=== PATIENT | female | born 1980 | race Caucasian/White ===

== ENCOUNTER 2016-09-14 12:25 | Inpatient (IN) | payer OTHER ==
[~2016-09-14] VITALS: Ht 152.4 cm; Wt 71.7 kg
[2016-09-17] MEDS ORDERED: PRENATAL VIT1 TAB PO (14:51)
[2016-09-17] MEDS ORDERED: FLEXERIL DPS5 MG PO (14:51)
[2016-09-17] MEDS ORDERED: FEOSOL-DPS325 MG PO (14:51)
[2016-09-17] MEDS ORDERED: MOTRIN-DPS800 MG PO (14:52)
[2016-09-17] MEDS ORDERED: PROTONIX40 MG PO (14:52)
[2016-09-17] MEDS ORDERED: COLACE-DPS100 MG PO (14:52)
[2016-09-17] MEDS ORDERED: PERCOCET 5 DPS1 TAB PO (14:52)
[2016-09-17] MEDS ORDERED: NIPPLECREAM TP (14:53)
--- NOTE | 2016-10-01 22:32 | HP ---
ADMIT: 09/14/2016 RM/LOC: 202 [facility] MR#: [id number] [address] [address] DEBRA BUTCHER [address] [place], [place] [id number] History and Physical SEX: F AGE: 36 : 1980 DATE OF SERVICE: CHIEF COMPLAINT: Elevated blood pressure. HISTORY OF PRESENT ILLNESS: This is a 36-year-old female, 4, para 0-0- 3-0, who [facility] with an intrauterine at 37 and 2/7th weeks' gestation with estimated date of confinement of 10/03/2016. Her estimated date of confinement is based off a 7-week ultrasound. She initially presented to the clinic for a blood pressure check. At that time, her blood pressure was noted to be 130/92. She also reported irregular uterine contractions and abdominal pain. She was therefore sent to the [facility] for monitoring. Her blood pressures were noted to be normal at the [facility]; however, heart tones were noted to have periods of minimal variability and only occasional 10 x 10 accelerations. Decelerations were absent. biophysical profile was then ordered. This did return showing absence of breathing movement and tone. She therefore had a total biophysical profile score of 2/10 and received only 2 points for fluid. Given these findings, we have decided to proceed with delivery. She had previously been planning a primary section secondary to a history of myomectomy. PAST MEDICAL HISTORY: Significant for chronic headaches and neck pain. Her has otherwise been complicated by history of recurrent spontaneous , history of myomectomy and history of infertility. She denies hypertension outside of , diabetes, asthma, or kidney or thyroid disease. PAST SURGICAL HISTORY: Uterine myomectomy in September of 2013. SOCIAL HISTORY: She is not . The father of the baby is involved. She denies tobacco, alcohol, or drug use. ALLERGIES: NO KNOWN DRUG ALLERGIES. CURRENT MEDICATIONS: Include: 1. Protonix 40 mg daily. 2. Hydroxyzine 25 mg as needed at bedtime. 3. Ferrous sulfate 325 mg daily. 4. Flexeril 10 mg t.i.d. p.r.n. 5. vitamins. LABORATORY DATA: Blood type is AB positive. Antibody screen negative, rubella immune, HIV negative, RPR nonreactive, hepatitis B surface antigen negative. Pap was normal. 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 Gonorrhea and chlamydia negative. Diabetic screen 125. Group B strep culture negative. PHYSICAL EXAMINATION: VITAL SIGNS: Temperature is 98.1, blood pressure 132/86, pulse 96, and respirations 16. GENERAL: This is a pleasant female, in no acute distress. ADMIT: 09/14/2016 RM/LOC: 202 [facility] MR#: [id number] [address] DEBRA BUTCHER [address] [place] [address] History and Physical SEX: F AGE: 36 : 1980 HEENT: Head is normocephalic, atraumatic. Pupils are equal, round, react to light and accommodation. Extraocular muscles are intact. NECK: Supple. HEART: Regular rate and rhythm. LUNGS: Clear bilaterally. ABDOMEN: Soft, nontender, and nondistended. Gravid. EXTREMITIES: Nontender. heart tones are 150s baseline, moderate, periods of minimal variability and periods of moderate variability are present, 10 x 10 accelerations are present. Decelerations are absent. Uterine contractions are irregular. Cervical exam is deferred. IMPRESSION: 1. This is a 36-year-old female, 4, para 0-0-3-0 with an intrauterine at 37 and 2/7th weeks' gestation. 2. Nonreassuring antepartum testing. 3. History of uterine myomectomy. PLAN: At this time, we do plan to proceed with a section. The risks, benefits, and alternatives have been discussed with the patient including, but not limited to the risks for bleeding, infection, potential for injury to the bowel, bladder, major vessels, or other nearby organs requiring repair. All of her questions have been answered. We have also discussed the potential need for blood transfusion and the risks associated with this, and she agrees to proceed. Eri London MD/ mary JOB #: [id number] CC: Eri London, Attending Physician Kiesha Escobar, Family Physician
--- NOTE | 2016-10-07 08:52 | OR ---
ADMIT: 09/14/2016 RM/LOC: 202 [facility] MR#: [id number] [facility] [address] [place] [id number] [address] [place] [address] Operative/Delivery Room Report SEX: F AGE: 36 : 1980 SURGERY DATE: 09/14/2016 SURGEON: Eri London MD PREOPERATIVE DIAGNOSES: 1. Intrauterine at 37 and 2/7th weeks' gestation. 2. Nonreassuring antepartum testing. 3. History of uterine myomectomy. POSTOPERATIVE DIAGNOSES: 1. Intrauterine at 37 and 2/7th weeks' gestation. 2. Nonreassuring antepartum testing. 3. History of uterine myomectomy. 4. Delivery of a viable female at 1542 hours weighing 6 pounds 11 ounces with scores of 9 at 1 minute and 9 at 5 minutes. PROCEDURE: Low transverse section. OR DIRECTOR: Santosh Frank MD ANESTHESIA: Spinal. COMPLICATIONS: None. ESTIMATED BLOOD LOSS: 800 mL. FLUIDS: Crystalloid. INDICATIONS: This is a 36-year-old female, 4, para 0-0-3-0, who [facility] an intrauterine at 37 and 2/7th weeks' gestation. She was noted to have a nonreactive NST and therefore biophysical profile was ordered. This did return showing only 2 points for fluid; therefore, her total biophysical score was 2/10. The decision was then made to proceed with delivery, and we discussed the risks, benefits, and alternatives to a section and she agreed. FINDINGS: Normal maternal uterus, tubes, and ovaries. Female infant as above. DESCRIPTION OF PROCEDURE: The patient was properly identified. Informed consent was obtained. She was then taken to the operating room where spinal anesthesia was placed. She was then placed in the dorsal supine position with a leftward tilt and prepped and draped in the usual sterile fashion. After adequate anesthesia was established, a Pfannenstiel skin incision was made with a scalpel. This was carried through to the underlying layer of fascia. The fascia was incised in the midline, and the incision was extended laterally using the Lane scissors. The superior aspect of the fascia was grasped with Alex clamps, elevated, and underlying rectus muscles were dissected off. Attention was then turned to the inferior aspect of the fascia in a similar ADMIT: 09/14/2016 RM/LOC: 202 [facility] MR#: [id number] [address] [address] [address] BUT[address] [place] [address] Operative/Delivery Room Report SEX: F AGE: 36 : 1980 manner, it was grasped with Alex clamps, elevated, and underlying rectus muscles were dissected off. The rectus muscles were in the midline. The peritoneum was identified and entered bluntly. The peritoneal incision was then extended superiorly and inferiorly with good visualization of the bladder. The bladder blade was placed. The vesicouterine peritoneum was identified, grasped with pickups, and entered sharply with the Metzenbaum scissors. The incision was extended laterally, and a bladder flap was created digitally. The bladder blade was then replaced, and the lower uterine segment was incised in a transverse fashion with the scalpel. The uterine incision was extended with the stretch maneuver. The bladder blade was removed and the 's vertex was delivered atraumatically. The anterior and posterior shoulders as well as remainder of the infant were easily delivered. The infant did have spontaneous cry and movement of all 4 extremities. The cord was clamped x2 and cut, and she was taken to the warmer where nursing personnel were in attendance. Cord blood and cord pH were obtained. The placenta delivered with help from traction and uterine massage. The uterus was exteriorized and cleared of all clot and debris. Uterine incision was repaired with 0 Vicryl in a running, locked fashion. The uterus was returned to the abdomen. The gutters were cleared of all clot and debris. The uterine incision was reinspected. A single [id number] stitch was placed to obtain excellent hemostasis. The posterior aspect of the rectus fascia, and the rectus muscles were made hemostatic with use of electrocautery. The rectus fascia was reapproximated with 0 Vicryl in a running, nonlocking fashion. The subcutaneous tissues were made hemostatic with use of electrocautery. They were reapproximated using 2-0 plain. Subcuticular asim and Steri-Strips were applied. The patient tolerated the procedure well. Sponge, lap, needle, and instrument counts were correct. The patient was taken to recover in her Labor and Delivery suite with her . Eri London MD/ mary JOB #: [id number] CC: Eri London, Attending Physician Kiesha Escobar, Family Physician
--- NOTE | 2016-11-10 09:41 | DS ---
ADMIT: 09/14/2016 RM/LOC: 202 [facility] MR#: [id number] [id number] [address] [address] [place] [address] General Discharge Summary SEX: F AGE: 36 : 1980 ADMISSION DATE: 09/14/2016 DISCHARGE DATE: 09/16/2016 PRIMARY DIAGNOSES: 1. Status post low transverse section at term secondary to nonreassuring antepartum testing. 2. History of uterine myomectomy. 3. Gestational hypertension. PROCEDURES PERFORMED: On 09/14/2016, low transverse section with delivery of a viable female , weighing 6 pounds and 11 ounces with scores of 9 at 1 minute, 9 at 5 minutes. HOSPITAL COURSE: This is a 36-year-old female, 4, para 0-0-3-0, who [facility] with an intrauterine at 37 and 2/7th weeks' gestation for observation secondary to an elevated blood pressure in the office. At the time of arrival to the [facility], her blood pressure was noted to be 132/86. heart tones; however, were noted to be 150s baseline with periods of minimal variability and periods of moderate variability. There were no 15 x 15 accelerations. There were no decelerations; therefore, biophysical profile was ordered. This did return showing 2 points for fluid. There was absent movement tone and breathing; therefore, given these findings, the decision was made to proceed with delivery, and given her history of previous uterine myomectomy and unfavorable cervix, the decision was made to proceed with section. The risks, benefits, and alternatives were discussed with the patient prior to proceeding and she agreed to proceed. She did undergo a low transverse section without any complications. Postoperatively, she did very well. By the morning of postoperative day #1, she was able to ambulate without any difficulty. Her urine output, however, had been 20 to 30 mL an hour; therefore, her Briggs catheter was continued until this improved. Her blood pressures were in the normal range of 110 to 130 systolic/60s to 80s diastolic. Throughout that day, her urine output improved; therefore, Briggs catheter was discontinued. She was able to ambulate without any difficulty. Her blood pressures remained stable and in normal range. Her postoperative hemoglobin was 8; therefore, she was started on ferrous sulfate b.i.d. By the morning of postoperative day #2, her pain was well controlled. She was able to ambulate, void, and tolerate a regular diet without any difficulty. Her blood pressures continued to be normal. She did request discharge on postoperative day #2, was deemed stable for discharge and dismissed to home. DISCHARGE INSTRUCTIONS: She was asked to call with any signs or symptoms of infection including a temperature greater than 100.4 degrees, vaginal bleeding greater than 1 pad an hour, erythema or drainage of her abdominal incision or any erythema or tenderness in her lower extremities or breasts. She was dismissed on: 1. Ferrous sulfate 325 mg 1 p.o. b.i.d. ADMIT: 09/14/2016 RM/LOC: 202 [facility] MR#: [id number] [address] [place] [id number] [address] [place] [address] General Discharge Summary SEX: F AGE: 36 : 1980 2. Colace 100 mg 1 p.o. b.i.d. 3. Motrin 800 mg 1 p.o. q.8 hours p.r.n. pain #30. 4. Percocet 5/325, 1 to 2 p.o. q.4 to 6 hours p.r.n. pain #20. She was advised that she could continue her Flexeril and Protonix, which were her previous home medications as needed. She was instructed to follow up in 1 week for a blood pressure check, in 2 weeks for an incision check, and in 6 weeks for a check. CONDITION ON DISCHARGE: Stable. DISPOSITION: The patient was dismissed to home. Eri London MD/ mary JOB #: [id number] CC: Eri London MD, Attending Physician Kiesha Escobar MD, Family Physician
== END 2016-09-16 16:50 | disposition home or self-care (01) | DRG 765 ==
LOC: 2LDRP 12:25 → BC 12:25 → 2LDRP 12:26 → BC 10-03 08:00
PROVIDERS: ADMIT Obstetrics & Gynecology
PROC: 10D00Z1 Extraction of Products of Conception, Low, Open Approach (ICD-10-PCS; principal; 2016-09-14)
DX: O76 Abnormality in fetal heart rate and rhythm complicating labor and delivery (principal); D62 Acute posthemorrhagic anemia; D69.6 Thrombocytopenia, unspecified; O99.12 Other diseases of the blood and blood-forming organs and certain disorders involving the immune mechanism complicating childbirth; O99.02 Anemia complicating childbirth; D64.9 Anemia, unspecified; Z3A.37 37 weeks gestation of pregnancy; Z37.0 Single live birth